=== PATIENT | female | born 1980 | race Hispanic/Latino ===

== ENCOUNTER 2017-08-27 13:05 | Emergency (ER) | payer OTHER ==
[~2017-08-27] VITALS: Ht 172.7 cm; Wt 108.8 kg
[~2017-08-27 13:05] MED LIST: AMOXICILLIN500 MG PO; CEPHALEXIN500 MG PO; CIPRO500 MG OR; CLINDAMYCIN300 M1 PO; LEVOTHYROXIN100 MCG PO; LEVOTHYROXIN75 MCG PO; LORTAB 7.57.5 MG PO; LORTAB5 OR; MOTRIN800 MG PO; MUPIROCIN2 % EX; NAPROSYN500 MG PO; NEXIUM40 M1 PO; PENICILLN VK500 MG PO; PREVPAC PO; SYNTHROID200 MCG PO; ULTRAM50 M1 PO; ULTRAM50 MG PO; ZOFRAN ODT4 MG PO; ZOFRAN ODT8 MG SL
[2017-08-27] MEDS ORDERED: FLEXERIL PO (14:50)
[2017-08-27] MEDS ORDERED: PREDNISONE50 MG PO (14:50)
[2017-08-27] MEDS ORDERED: LORTAB 5/3255 MG PO (14:50)
[2017-08-27 14:54] VITALS: BP 142/85
== END 2017-08-27 14:59 | disposition home or self-care (01) | DRG 552 ==
LOC: ED 13:05
DX: M54.5 Low back pain (principal); I31.3 Pericardial effusion (noninflammatory)

== ENCOUNTER 2017-09-01 17:18 | Emergency (ER) | payer MEDICAID ==
[~2017-09-01] VITALS: Ht 172.7 cm; Wt 109.2 kg
[~2017-09-01 17:18] MED LIST changes: +FLEXERIL PO; +LORTAB 5/3255 MG PO; +PREDNISONE50 MG PO
[2017-09-01] MEDS ORDERED: LEVOTHYROXIN150 MCG PO (18:24)
[2017-09-01 18:35] LABS: URINE BILIRUBIN - DIPSTICK NEGATIVE (NEGATIVE); URINE BLOOD DIPSTICK NEGATIVE (NEGATIVE); URINE COLOR YELLOW; URINE GLUCOSE - DIPSTICK NEGATIVE (NEGATIVE); URINE KETONE NEGATIVE (NEGATIVE); URINE LEUK ESTERASE NEGATIVE (NEGATIVE); URINE NITRITE - DIPSTICK NEGATIVE (Negative); URINE PROTEIN - DIPSTICK NEGATIVE (NEG-TRACE); URINE SPECIFIC GRAVITY >=1.030; URINE UROBILINOGEN - DIPSTICK 0.2 E.U./dL (0.2)
[2017-09-01 18:47] LABS: URINE CLARITY CLEAR
[2017-09-01] MEDS ORDERED: ORPHENADRINE100 MG PO (21:39)
[2017-09-01] MEDS ORDERED: TORADOL PO (21:39)
[2017-09-01 21:54] VITALS: BP 109/60
== END 2017-09-01 21:55 | disposition home or self-care (01) | DRG 552 ==
LOC: ED 17:18
PROVIDERS: Family Medicine
DX: M54.5 Low back pain (principal); M47.816 Spondylosis without myelopathy or radiculopathy, lumbar region

== ENCOUNTER 2017-10-16 15:14 | Emergency (ER) | payer OTHER ==
[~2017-10-16] VITALS: Ht 172.7 cm; Wt 113.7 kg
[~2017-10-16 15:14] MED LIST changes: +LEVOTHYROXIN150 MCG PO; +ORPHENADRINE100 MG PO; +TORADOL PO
[2017-10-16] MEDS ORDERED: AUGMENTIN875TAB PO (15:45)
[2017-10-16] MEDS ORDERED: MOTRIN800 MG PO (15:45)
[2017-10-16] MEDS ORDERED: BACTROBAN21 EX (15:45)
[2017-10-16 16:11] VITALS: BP 113/71
== END 2017-10-16 16:11 | disposition home or self-care (01) | DRG 605 ==
LOC: ED 15:14
DX: S81.852A Open bite, left lower leg, initial encounter (principal); W54.0XXA Bitten by dog, initial encounter; Y93.89 Activity, other specified; Y92.008 Other place in unspecified non-institutional (private) residence as the place of occurrence of the external cause

== ENCOUNTER 2018-12-16 15:15 | Emergency (ER) | payer OTHER ==
[~2018-12-16] VITALS: Ht 172.7 cm; Wt 105.0 kg
[~2018-12-16 15:15] MED LIST changes: +AUGMENTIN875TAB PO; +BACTROBAN21 EX
[2018-12-16] MEDS ORDERED: KEFLEX500 M1 PO (16:44)
[2018-12-16 17:00] VITALS: BP 118/41
== END 2018-12-16 17:00 | disposition home or self-care (01) | DRG 605 ==
LOC: ED 15:15
DX: S60.022A Contusion of left index finger without damage to nail, initial encounter (principal); S61.230A Puncture wound without foreign body of right index finger without damage to nail, initial encounter; W23.0XXA Caught, crushed, jammed, or pinched between moving objects, initial encounter; Y93.89 Activity, other specified; Y92.212 Middle school as the place of occurrence of the external cause; Y99.0 Civilian activity done for income or pay

== ENCOUNTER 2020-05-07 15:06 | Observation (INO) | payer SELFPAY ==
[~2020-05-07] VITALS: Ht 172.7 cm; Wt 106.3 kg
[~2020-05-07 15:06] MED LIST changes: +KEFLEX500 M1 PO
--- NOTE | 2020-05-07 15:27 | NUR ---
AMBULATED TO RM 8, ACCOMPANIED BY HER MOTHER
--- NOTE | 2020-05-07 15:42 | NUR ---
IN ROOM WITH PT AND DR RAMSAY. REPORTS CYST ON LEFT LABIA THAT ERUPTED 2 DAYS AGO AND HAS PROGRESSIVELY BECAME LARGER IN SIZE. PT WAS SEEN AT [facility] [place] AND EDUCATION SALES CONSULTANT I&D AREA TO LEFT LABIA WITH MINIMAL DRAINAGE. DR RAMSAY BEDSIDE FOR EXTERNAL VAGINAL EXAMINATION AND US PERFORMED TO SAME. PT TOLERATED WELL. DR RAMSAY DISCUSSED PLAN OF CARE FOR ABX, BLOOD WORK, AND CT SCAN. PT VERBALIZED UNDERSTANDING. CALL LIGHT GIVEN.
--- NOTE | 2020-05-07 15:55 | NUR ---
IV ACCESS OBTAINED WITH BLOOD SPECIMENS AND 1ST OF BLOOD CX COLLECTED. PT TOLERATED WELL. PT REQUESTING PAIN MEDICATION. DR RAMSAY MADE AWARE AND ORDERS RECEIVED.
[2020-05-07 16:23] LABS: HEMATOCRIT 40.8 % (37.0-47.0); HEMOGLOBIN 12.7 g/dl (12.0-16.0); IMMATURE GRANULOCYTES 0.5 % (0.0-5.0); MEAN CELL VOLUME 95.1 fL CALC (80.0-100.0); MEAN CORPUSCULAR HGB 29.6 pG CALC (26.0-32.0); MEAN CORPUSCULAR HGB CONC 31.1 g/dL CAL (32.0-36.0); NEUT# 5.31 thou/uL (2.00-7.15); RED BLOOD COUNT 4.29 mill/uL (4.20-5.60); RED CELL DISTRI WIDTH 14.4 % (11.5-15.5)
--- NOTE | 2020-05-07 16:30 | NUR ---
PT RETURNED FROM CT VIA STRETCHER. IVF AND IV ABX INITIATED AND PAIN MEDICATION PROVIDED. PT TOLERATING ADMINISTRATION WELL.
[2020-05-07 16:35] LABS: ALBUMIN 4.3 g/dL (3.2-5.0); ALKALINE PHOSPHATASE 79 u/l (38-126); ANION GAP 15 (6-22 (CALC)); BILIRUBIN, TOTAL 0.6 mg/dL (0.0-1.4); BUN 7 mg/dL (7-17); BUN/CREATININE RATIO 12 (12-20 (CALC)); CARBON DIOXIDE 23 mmol/l (22-30); CHLORIDE 105 mmol/l (95-108); CREATININE 0.6 mg/dL (0.5-1.0); GFR > 60 ML/MIN (>=60 (CALC)); GFR FOR AFR.AMER. > 60 ML/MIN (>=60 (CALC)); POTASSIUM 3.7 mmol/l (3.5-5.1); SGOT/AST 22 u/l (14-36); SODIUM 140 mmol/l (137-146); TOTAL PROTEIN 7.2 g/dL (6.3-8.2)
--- NOTE | 2020-05-07 16:59 | NUR ---
ICE PACK PROVIDED FOR COMFORT.
[2020-05-07 17:27] LABS: URINE BILIRUBIN - DIPSTICK NEGATIVE (NEGATIVE); URINE BLOOD DIPSTICK MODERATE (NEGATIVE); URINE COLOR YELLOW; URINE GLUCOSE - DIPSTICK NEGATIVE (NEGATIVE); URINE KETONE NEGATIVE (NEGATIVE); URINE LEUK ESTERASE NEGATIVE (NEGATIVE); URINE NITRITE - DIPSTICK NEGATIVE (Negative); URINE PH 6.5 (4.5-8.0); URINE PROTEIN - DIPSTICK NEGATIVE (NEG-TRACE); URINE UROBILINOGEN - DIPSTICK 0.2 E.U./dL (0.2)
[2020-05-07 17:28] LABS: URINE EPITHELIAL CELLS FEW EPI/hpf (0-FEW)
--- NOTE | 2020-05-07 17:35 | NUR ---
PT RESTING ON STRETCHER. REPORTS PAIN LEVEL 7/10 POST PAIN MEDICATION ADMINISTRATION. ICE PACK IN PLACE TO PERINEUM AREA.
--- NOTE | 2020-05-07 17:43 | NUR ---
REPORT GIVEN TO JORGE DURAN.
--- NOTE | 2020-05-07 17:44 | NUR ---
PT MEDICATED WITH ADDITIONAL PAIN MEDICATION. TOLERATED ADMINSTRATION WELL. AWAITING TRANSPORT TO SD. IV ABX CONT TO INFUSE TO LAC SITE. NO REDNESS, SWELLING, DRAINAGE, WARMTH TO SITE NOTED.
--- NOTE | 2020-05-07 18:10 | NUR ---
Admission Note Report Given to: ROGER RN Transported by: X Wheelchair Stretcher Transported with: X Nurse Transporter X Patent IV O2 Racker Octave Board Location: ICU X MS2 PT TRANSPORTED TO MS RM 279 BY NURSE.
[2020-05-07 18:20] VITALS: BP 110/65
[2020-05-07 18:24] VITALS: BP 110/65
--- NOTE | 2020-05-07 18:37 | NUR ---
1830 PT ARRIVED TO FLOOR. PT ALET AND ORIENTED X4, GAIT STEADY, STATED PAIN '5'. PATIENT ORIENTED TO ROOM
--- NOTE | 2020-05-07 18:56 | NUR ---
[facility] CALLED WANTING TO KNOW IF THEY WERE DOSING THE VANCO, INFORMED HER THAT PATIENT WAS RECEIVING A DOSE, AND THE STAFF NURSE INSTRUCTED WRITTER TO TELL THEM THAT [facility] WILL DOSE IN THE MORNING
--- NOTE | 2020-05-07 19:30 | NUR ---
PATIENT IS ALERT AND ORIENTED X3. ABLE TO MAKE NEEDS KNOWN. RESPIRATIONS EASY ON ROOM AIR. SKIN WARM AND DRY. C/O PAIN TO LEFT LABIA 12/16. WAS ALREADY MEDICATED AROUND 1744. EXPLAINED TO PATIENT THAT MORPHINE IS AVAILABLE EVERY FOUR HOURS. PATIENT VERBALIZED UNDERSTANDING AND SAID IT WAS OK. LONG I AM NOT MOVING AROUND IT'S NOT BAD. LEFT LABIA VERY SWOLLEN DRAINING SMALL AMOUNT SEROSANGUENOUS FLUID. IVABT INFUSING FROM THE ED. PATIENT ABLE TO MOVE ALL EXTREMITIES. PEDAL PULSES STRONG BILATERALLY. BED IN LOW POSITION CALL LIGHT WITHIN REACH
[2020-05-07 20:00] VITALS: BP 109/65
[2020-05-08 04:00] VITALS: BP 102/39
--- NOTE | 2020-05-08 04:00 | NUR ---
PATIENT RESTING QUIETLY IN BED. NO COMPLAINTS VERBALIZED. BED IN LOW POSITION. CALL LIGHT WITHIN REACH.
[2020-05-08 04:41] LABS: HEMATOCRIT 35.6 % (37.0-47.0); IMMATURE GRANULOCYTES 0.3 % (0.0-5.0); MEAN CELL VOLUME 96.2 fL CALC (80.0-100.0); MEAN CORPUSCULAR HGB 29.7 pG CALC (26.0-32.0); MEAN CORPUSCULAR HGB CONC 30.9 g/dL CAL (32.0-36.0); NEUT# 4.39 thou/uL (2.00-7.15); RED BLOOD COUNT 3.7 mill/uL (4.20-5.60); RED CELL DISTRI WIDTH 14.5 % (11.5-15.5)
[2020-05-08 05:01] LABS: ANION GAP 10 (6-22 (CALC)); BUN 7 mg/dL (7-17); BUN/CREATININE RATIO 10 (12-20 (CALC)); CARBON DIOXIDE 24 mmol/l (22-30); CHLORIDE 109 mmol/l (95-108); CREATININE 0.7 mg/dL (0.5-1.0); GFR > 60 ML/MIN (>=60 (CALC)); GFR FOR AFR.AMER. > 60 ML/MIN (>=60 (CALC)); POTASSIUM 4.2 mmol/l (3.5-5.1); SODIUM 138 mmol/l (137-146)
--- NOTE | 2020-05-08 05:39 | NUR ---
0200 VANCO DELAYED AND RESTARTED AT 0530. NEW TIME SCHEDULE PER PHARMACY 0600 1400 2200.
[2020-05-08 07:19] VITALS: BP 91/56
--- NOTE | 2020-05-08 08:15 | NUR ---
PT IS RESTING IN BED WITH NO S/S OF DISTERSS NOTED. ASSESSMENT DONE. PT IS A&O X3. PT STATED PAIN IN ROSELINE CARE 10/16 BUT DENIES PAIN MEDICATION AT THIS TIME. PT STATED SCANT BLOOD NOTED IN PAD. RESPS EVEN AND UNLABORED. PT DENIES ANY NEEDS AT THIS TIME. CALL LIGTH IN REACH.
--- NOTE | 2020-05-08 10:50 | NUR ---
DR. BAUTISTA IN ROOM TO ASSESS ROSELINE AREA ON PT.
--- NOTE | 2020-05-08 11:31 | NUR ---
PT STATED PAIN ROSELINE AREA 01/15. MEDICATED PT WITH MORPHINE AND APPLIED WARM PACK ON PT ROSELINE AREA. PT DENIES ANY OTHER NEEDS AT THIS TIME. CALL LIGHT IN REACH.
--- NOTE | 2020-05-08 14:43 | NUR ---
S: BHARGAVI KAMINSKI Charlene is a 39 F who presents with CELLULITIS . She has a history OF NA. All medications in patient's chart were reviewed. O: W 106kg, HT 68IN , Scr=0.7 A: Blood culture <is pending Urine culture <is pending P: Patient is on ZOSYN 3.375 GM Q6H. Vancomycin ordered for pharmacy to dose. Start Vancomycin 1.25GM IV Q8H. Vancomycin trough is drawn before the 4th dose on 05/09/20 @0530. Vancomycin goal trough is between <10-20 mcg/ml>. Pharmacy will follow and or advise on antibiotics use as needed.
[2020-05-08 15:28] VITALS: BP 99/49
--- NOTE | 2020-05-08 16:00 | NUR ---
PT IS RESTING IN BED WITH NO S/S OF DISTRESS NOTED. PT STATED WARM PACK IS HELPING WITH ROSELINE AREA PAIN. PT DENIES ANY PAIN MEDICATION AT THIS TIME. PT IN ROOM. PO FLUIDS PROVIDED. PT DENIES ANY OTHER NEEDS AT THIS TIME. CALL LIGHT IN REACH.
[2020-05-08 16:17] VITALS: BP 102/62
[2020-05-08 19:33] VITALS: BP 109/79
--- NOTE | 2020-05-08 19:35 | NUR ---
PATIENT IS ALERT AND ORIENTED X3. ABLE TO MAKE NEEDS KNOWN. RESPIRATIONS EASY ON ROOM AIR. SKIN WARM AND DRY. VAD #20 LAC INFUSING NS @125ML/HR. C/O PAIN 4 OF 10. NO PAIN MEDICATION REQUESTED. PATIENT CURRENTLY USING WARM COMPRESSES TO LABIA FOR RELIEF WITH POSITIVE EFFECT. BS+ X4. PEDAL PULSES PALPABLE BILATERALLY. BED IN LOW POSITION. CALL LIGHT WITHIN REACH.
--- NOTE | 2020-05-09 | NUR ---
RESTING QUIETLY. C/O PAIN ADDRESSED WITH PRN MORPOHINE WITH POSITIVE EFFECT. BED IN LOW POSITION. CALL LIGHT WITHIN REACH.
--- NOTE | 2020-05-09 04:00 | NUR ---
PATIENT RESTING QUIETLY WITH EYES CLOSED. RESPIRATIONS EASY. BED IN LOW POSITION. CALL LIGHT WITHIN REACH.
[2020-05-09 04:25] VITALS: BP 102/61
[2020-05-09 07:00] VITALS: BP 96/59
--- NOTE | 2020-05-09 07:00 | NUR ---
PT RESTING IN BED, NO SIGNS OF DISTRESS NOTED, RESP EVEN AND UNLABORED. PT ALERT AND ORIENTED X3, DISCUSSED POC, PT VOICES NO NEEDS OR COMPLAINTS AT THIS TIME. ASSESSMENT COMPLETED, CALL LIGHT IN REACH,CONTINUE TO MONITOR.
--- NOTE | 2020-05-09 09:37 | NUR ---
AT BEDSIDE TO DISCUSS POC, CONTINUE TO MONITOR.
--- NOTE | 2020-05-09 11:38 | NUR ---
PT RESTING IN BED, EATING LUNCH, IV ZOSYN HUNG, CALL LIGHT IN REACH,CONTINUE TO MONITOR.
[2020-05-09 14:55] VITALS: BP 105/60
[2020-05-09 20:00] VITALS: BP 108/65
--- NOTE | 2020-05-09 20:00 | NUR ---
PATIENT RESTING IN BED-AWAKE ALERT AND ORIENTEDEX3. PATIENT PROVIDED WITH ROSELINE-BOTTLE AND INSTRUCTED ON USE AFTER URINATION AND OR BM FOR PERINEAL CLEANLINESS. VERBALIZES UNDERSTANDING OF USE. ALSO PROVIDED WITH MOIST WARM COMPRESS TO BE USE TO AFFECT PERINEAL AREA ORDERED. STATES THAT SHE DOES GET SOME RELIEF FROM BOTH OF THESE TREATMENTS. PATIENT IS VOIDING QS IN BR. IV SITE TOO LAC INTACT WITH IVF NS PATENT AND INFUSING AT 125CC/HR. SITE IS HEALTHY AT THIS TIME. SAFETY PRECAUTIONS REINFORCED. CALL LIGHT IN REACH, WILL CONT TO MONITOR.
--- NOTE | 2020-05-09 21:15 | NUR ---
PATIENT RESTING INBED-MEDICATED FOR C/O PERINEAL PAIN WITH MORPHINE 4MG IVP ORDERED. IVF PATENT AND INFUSING ORDERED AT 125CC/HR. SITE IS HEALTHY. CALL LIGHT IN REACH. WILL CONT TO MONITOR.
--- NOTE | 2020-05-10 00:30 | NUR ---
PATIENT RESTING IN BED-NO COMPLAINTS AT THIS TIME. VANCO FINISHED ORDERED. ZOSYN IS NOW INFUSING AT THIS TIME. NO COMPLAINTS AT THIS TIME. CALL LIGHT IN REACH. WILL CONT TO MONITOR.
[2020-05-10 04:00] VITALS: BP 96/62
--- NOTE | 2020-05-10 05:02 | NUR ---
PATIENT RESTING IN BED AT THIS TIME-APPEARS SLEEPING WITH EYES CLOSED. RESPS ARE EVEN AND UNLABORED. IVF PATENT AND INFUSING VIA LEFT AC SITE AT 125CC/HR. SITE REMAINS HJEALTHY. CALL LIGHT IN REACH, WILL CONT TO MONITOR.
--- NOTE | 2020-05-10 06:58 | NUR ---
REPORT RECEIVED FROM JORGE BUCK. PT RESTING IN BED FREE FROM DISTRESS AT THIS TIME. SAFETY PRECAUTIONS IN PLACE. WILL CONTINUE TO MONITOR.
[2020-05-10 08:20] VITALS: BP 97/47
--- NOTE | 2020-05-10 08:20 | NUR ---
PT RESTING IN BED, ALERT AND ORIENTED. RESPIRATIONS ARE EVEN AND UNLABORED ON RA. LUNGS SOUND CLEAR. PEDAL PULSES ARE STRONG. PT REPORTS MILD VAGINAL PAIN AT THIS TIME. PT DENIES ANY NEEDS. SAFETY PRECAUTIONS IN PLACE. WILL CONTINUE TO MONITOR.
[2020-05-10] MEDS ORDERED: AMOX/K CLAV875 M1 PO (11:05)
[2020-05-10] MEDS ORDERED: LORTAB 5/3255 MG PO (11:20)
--- NOTE | 2020-05-10 11:55 | NUR ---
PT RESTING IN BED, FAMILY AT BEDSIDE. NO S/S OF DISTRESS AT THIS TIME. SAFETY PRECAUTIONS IN PLACE. WILL CONTINUE TO MONITOR.
--- NOTE | 2020-05-10 13:25 | NUR ---
PT RESTING IN BED, FAMILY AT BEDSIDE. PT PROVIDED WITH DISCHARGE PACKET AND PRESCRIPTIONS. IV #20 LAC REMOVED IV CATHETER INTACT. PT DENIES ANY QUESTIONS OR CONCERNS AT THIS TIME. SAFETY PRECAUTIONS IN PLACE.
--- NOTE | 2020-05-10 13:40 | NUR ---
Discharge instructions given. Patient verbalizes understanding of same. Discharged in stable condition via Ambulatory to Home with family. All belongings sent with pt.
== END 2020-05-10 13:40 | disposition home or self-care (01) | DRG 759 ==
LOC: ED 15:06 → ED-I 16:49 → ED 17:05 → MS2 17:06
PROVIDERS: Family Medicine; ADMIT Internal Medicine; ATTEND Internal Medicine
DX: N76.2 Acute vulvitis (principal); E03.9 Hypothyroidism, unspecified; Z20.828 Contact with and (suspected) exposure to other viral communicable diseases
CPT/HCPCS: G0378; J3370; Q9967

== ENCOUNTER 2020-10-26 | Emergency (ER) | payer SELFPAY ==
[~2020-10-26] MED LIST changes: +AMOX/K CLAV875 M1 PO
[2020-10-26] MEDS ORDERED: LASIX 40 MG TAB40 MG PO (16:20)
[2020-10-26 17:18] LABS: HEMOGLOBIN 12.9 g/dl (12.0-16.0); IMMATURE GRANULOCYTES 0.3 % (0.0-5.0); MEAN CELL VOLUME 97.4 fL CALC (80.0-100.0); MEAN CORPUSCULAR HGB 30.6 pG CALC (26.0-32.0); MEAN CORPUSCULAR HGB CONC 31.5 g/dL CAL (32.0-36.0); NEUT# 3.23 thou/uL (2.00-7.15); RED BLOOD COUNT 4.21 mill/uL (4.20-5.60); RED CELL DISTRI WIDTH 15.1 % (11.5-15.5)
[2020-10-26 17:40] LABS: ALBUMIN 4.8 g/dL (3.2-5.0); ALKALINE PHOSPHATASE 58 u/l (38-126); BILIRUBIN, TOTAL 0.7 mg/dL (0.0-1.4); BUN 10 mg/dL (7-17); BUN/CREATININE RATIO 10 (12-20 (CALC)); CHLORIDE 99 mmol/l (95-108); GFR > 60 ML/MIN (>=60 (CALC)); GFR FOR AFR.AMER. > 60 ML/MIN (>=60 (CALC)); POTASSIUM 3.8 mmol/l (3.5-5.1); SODIUM 137 mmol/l (137-146); TOTAL PROTEIN 8.1 g/dL (6.3-8.2)
[2020-10-26 17:43] LABS: URINE BILIRUBIN - DIPSTICK NEGATIVE (NEGATIVE); URINE BLOOD DIPSTICK NEGATIVE (NEGATIVE); URINE COLOR YELLOW; URINE GLUCOSE - DIPSTICK NEGATIVE (NEGATIVE); URINE KETONE NEGATIVE (NEGATIVE); URINE LEUK ESTERASE NEGATIVE (NEGATIVE); URINE PH 6.5 (4.5-8.0); URINE PROTEIN - DIPSTICK NEGATIVE (NEG-TRACE); URINE SPECIFIC GRAVITY 1.025; URINE UROBILINOGEN - DIPSTICK 0.2 E.U./dL (0.2)
[2020-10-26 17:43] LABS: ANION GAP 11 (6-22 (CALC)); CARBON DIOXIDE 31 mmol/l (22-30); SGOT/AST 41 u/l (14-36)
[2020-10-26 17:52] LABS: URINE NITRITE - DIPSTICK NEGATIVE (Negative)
[2020-10-26 18:15] LABS: TSH, 3RD GENERATION > 100.00 uIU/mL (0.47 - 4.68)
== END 2020-10-26 19:31 | disposition home or self-care (01) | DRG 645 ==
PROVIDERS: Emergency Medicine
DX: E03.9 Hypothyroidism, unspecified (principal); T38.1X6A Underdosing of thyroid hormones and substitutes, initial encounter; Z91.128 Patient's intentional underdosing of medication regimen for other reason

== ENCOUNTER 2020-11-08 23:15 | Emergency (ER) | payer OTHER ==
[~2020-11-08 23:15] MED LIST changes: +LASIX 40 MG TAB40 MG PO
[2020-11-09 00:42] LABS: HEMATOCRIT 36.8 % (37.0-47.0); HEMOGLOBIN 11.6 g/dl (12.0-16.0); IMMATURE GRANULOCYTES 0.4 % (0.0-5.0); MEAN CELL VOLUME 98.1 fL CALC (80.0-100.0); MEAN CORPUSCULAR HGB 30.9 pG CALC (26.0-32.0); MEAN CORPUSCULAR HGB CONC 31.5 g/dL CAL (32.0-36.0); NEUT# 1.86 thou/uL (2.00-7.15); RED BLOOD COUNT 3.75 mill/uL (4.20-5.60); RED CELL DISTRI WIDTH 15.4 % (11.5-15.5)
[2020-11-09 01:04] LABS: ALBUMIN 4.2 g/dL (3.2-5.0); ALKALINE PHOSPHATASE 73 u/l (38-126); ANION GAP 13 (6-22 (CALC)); BILIRUBIN, TOTAL 0.6 mg/dL (0.0-1.4); BUN 11 mg/dL (7-17); BUN/CREATININE RATIO 13 (12-20 (CALC)); CARBON DIOXIDE 27 mmol/l (22-30); CHLORIDE 102 mmol/l (95-108); CREATININE 0.8 mg/dL (0.5-1.0); GFR > 60 ML/MIN (>=60 (CALC)); GFR FOR AFR.AMER. > 60 ML/MIN (>=60 (CALC)); POTASSIUM 3.8 mmol/l (3.5-5.1); SGOT/AST 47 u/l (14-36); SODIUM 137 mmol/l (137-146); TOTAL PROTEIN 7.1 g/dL (6.3-8.2)
[2020-11-09 05:52] LABS: TSH, 3RD GENERATION 19.1 uIU/mL (0.47 - 4.68)
[2020-11-09 05:58] LABS: MYOGLOBIN 27 ng/mL (0 - 62)
[2020-11-09 06:05] VITALS: BP 109/63
== END 2020-11-09 06:02 | disposition short-term general hospital (02) | DRG 177 ==
LOC: ED 23:15
PROVIDERS: Emergency Medicine
DX: U07.1 COVID-19 (principal); J12.82 Pneumonia due to coronavirus disease 2019; I31.3 Pericardial effusion (noninflammatory); E03.9 Hypothyroidism, unspecified
CPT/HCPCS: Q9967

== ENCOUNTER 2022-06-02 07:36 | Emergency (ER) | payer SELFPAY ==
[~2022-06-02] VITALS: Ht 172.7 cm; Wt 109.0 kg
[2022-06-02 07:45] VITALS: BP 123/85
[2022-06-02] MEDS ORDERED: AMOX/K CLAV875 M1 PO (08:02)
[2022-06-02] MEDS ORDERED: OFLOXACIN0.3 % OD (08:02)
[2022-06-02] MEDS ORDERED: DOXY-CAPS100 MG PO (08:02)
[2022-06-02 08:11] VITALS: BP 123/85
== END 2022-06-02 08:25 | disposition home or self-care (01) | DRG 603 ==
LOC: ED 07:36
DX: L03.213 Periorbital cellulitis (principal); H10.9 Unspecified conjunctivitis; E03.9 Hypothyroidism, unspecified

== ENCOUNTER 2024-01-22 09:06 | Emergency (ER) | payer OTHER ==
[~2024-01-22] VITALS: Ht 172.7 cm; Wt 100.0 kg
[~2024-01-22 09:06] MED LIST changes: +DOXY-CAPS100 MG PO; +NAPROXEN500 MG PO; +OFLOXACIN0.3 % OD
[2024-01-22] MEDS ORDERED: METHOCARBAMOL 500 MG/TAB PO ONE (11:00)
[2024-01-22] MEDS ORDERED: KETOROLAC TROMETHAMINE 30 MG/ML SDV IM ONE (11:00)
[2024-01-22] MEDS ORDERED: ONDANSETRON 4 MG/TAB ODT PO ONE (11:55)
[2024-01-22] MEDS ORDERED: MORPHINE SULFATE 4 MG/ML VIAL IV ONE (11:55)
[2024-01-22 12:12] VITALS: BP 118/59
[2024-01-22 12:21] VITALS: BP 93/56
[2024-01-22 12:40] VITALS: BP 93/55
[2024-01-22 13:00] VITALS: BP 91/52
[2024-01-22 13:20] VITALS: BP 98/47
[2024-01-22] MEDS ORDERED: TRAMADOL HYDROC50 M1 PO (13:22)
[2024-01-22] MEDS ORDERED: FLEXERIL5 M1 PO (13:22)
[2024-01-22] MEDS ORDERED: NAPROXEN500 MG PO (13:22)
[2024-01-22 13:44] VITALS: BP 117/76
== END 2024-01-22 13:40 | disposition home or self-care (01) | DRG 552 ==
LOC: ED 09:06
DX: M53.3 Sacrococcygeal disorders, not elsewhere classified (principal); R73.03 Prediabetes; I10 Essential (primary) hypertension; E03.9 Hypothyroidism, unspecified; E66.9 Obesity, unspecified